=== PATIENT | male | born 1990 | race African-American/Black ===

== ENCOUNTER 2016-12-20 02:21 | Emergency (ER) | payer OTHER ==
[~2016-12-20] VITALS: Ht 172.7 cm; Wt 90.7 kg
[2016-12-20 03:10] VITALS: BP 146/88
[2016-12-20] MEDS ORDERED: LIDOCAINE 1% / SOD BICARB 8.4% 20 ML VIAL. IJ ONE (03:15)
[2016-12-20] MEDS ORDERED: DIPHTH,PERTUSS(ACELL),TET TOX 0.5 ML DISP.SYRIN. VAX IM ONE (03:15)
[2016-12-20] MEDS ORDERED: IBUPROFEN 600 MG TABLET. PO ONE (03:15)
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
[2016-12-20] MEDS ORDERED: NEOMY/BACITR/POLYMYXIN OINT PACKET. TP ONE (03:45)
--- NOTE | 2016-12-20 07:12 | RAD ---
Right index finger, 3 views, 12/20/2016: History: Possible foreign body No fracture or dislocation is identified. No radiopaque foreign body is evident in the soft tissues. IMPRESSION: No acute bony abnormality is detected.
== END 2016-12-20 04:59 | disposition home or self-care (01) ==
LOC: ER 02:21
DX: S60.021A Contusion of right index finger without damage to nail, initial encounter (principal); Y28.8XXA Contact with other sharp object, undetermined intent, initial encounter; Y93.89 Activity, other specified; Y99.8 Other external cause status; Y92.89 Other specified places as the place of occurrence of the external cause
CPT/HCPCS: 11750; 73140; 90471; 90715; 99284-25